=== PATIENT | male | born 1975 | race Caucasian/White ===

== ENCOUNTER → 2021-07-07 09:42 | Outpatient (CLI) | payer OTHER, SELFPAY ==
--- NOTE | ~2021-07-07 | XR_ITS ---
XR thoracic spine 3V DATE: 07/07/2021 10:24 INDICATION: Neck pain, back pain TECHNIQUE: AP, lateral, swimmer views COMPARISON: None FINDINGS: Normal alignment of the thoracic spine. No fracture or bone destruction. The thoracic pedic les are intact. Prominent spurring is noted on the right at T6-7. No paraspinal soft tissue thickening. An status post anterior and interbody spinal fusion at C4-5, with moderate degenerative disc changes above and below the fusion. IMPRESSION: Degenerative change Reviewed, dictated and finalized at location B. IMPRESSION: Degenerative change
--- NOTE | ~2021-07-07 | XR_ITS ---
XR lumbar spine 2-3V DATE: 07/07/2021 10:24 INDICATION: Back pain TECHNIQUE: AP, lateral, coned lateral lumbosacral views COMPARISON: None FINDINGS: There is minimal dextro scoliosis of the lumbar spine. Normal alignment of the lumbar verte brae. No fracture or bone destruction or spondylolisthesis. The lumbar pedicles are intact. There is minimal degenerative spurring at L3-4, L4-5 and L5-S1. The sacroiliac joints are intact. IMPRESSION: Minimal dextroscoliosis Mild degenerative spurring Reviewed, dictated and finalized at location B.
--- NOTE | ~2021-07-07 | XR_ITS ---
XR_CERV2-3V_CR DATE: 07/07/2021 10:23 INDICATION: Cervical disc disorder TECHNIQUE: AP, open-mouth, lateral and swimmer views. Flexion and extension lateral views. COMPARISON: None FINDINGS: There is straightening of the cervical spine. Status post anterior and interbody spinal fusion at C4-5. There is minimal anterolisthesis at C2-3, stable in flexion, extension and neutral. There is anterior and posterior C3-4 spurring but the C3-4 disc space is relatively preserved. There is prominent anterior spurring at C5-6 but the C5-6 disc space is well preserved. C1 and C2 are normally aligned and the odontoid process is intact. No fracture or dislocation or lock ed facet or prevertebral soft tissue swelling. IMPRESSION: Straightening Minimal anterolisthesis at C2-3 Status post anterior and interbody spinal fusion at C4-5, with [id number] degenerative disc jovanna nges above and below this level Reviewed, dictated and finalized at Location A. Reviewed, dictated and finalized at location B. IMPRESSION: Straightening Minimal anterolisthesis at C2-3 Status post anterior and interbody spinal fusion at C4-5, with [id number] degenerative disc changes above and below this level
== END ==
PROVIDERS: PCP Family Medicine; Visit Provider Family Medicine
DX: M50.90 Cervical disc disorder, unspecified, unspecified cervical region (principal); M51.9 Unspecified thoracic, thoracolumbar and lumbosacral intervertebral disc disorder; M41.9 Scoliosis, unspecified; Z98.1 Arthrodesis status; M47.812 Spondylosis without myelopathy or radiculopathy, cervical region
CPT/HCPCS: 72040; 72072; 72100

== ENCOUNTER 2021-09-25 13:30 | Outpatient (RCR) | payer OTHER, SELFPAY ==
--- NOTE | 2021-08-30 11:24 | PTOPEVAL ---
PHYSICAL THERAPY EVALUATION AND PLAN OF CARE Thank you for referring Willy Rush to [facility].? The patient is scheduled to be seen for therapy? 2x/week for 4 weeks. Please review, sign, date and return this plan of care CAIN. I agree with and certify that the following plan of care is medically necessary. Referring Physician Date Evaluation Diagnosis neck pain, degenerative changes Onset chronic Subjective Information Has a degenerative disc Query Text:As Reported By Patient/ disorder - per patient and Family - that causes neurologic changes and impaired gait and weakness. He had surgery in 2016 to remove C4 disc and perform fusion. Since then he has had permenant neurologic changes including impaired gait and weakness and twitching but in the last 6-7 months his amount of activity has significantly decline and is spending a lot less time up and moving. Self Report Pain Assessment Spine, Cervical Reported Pain Level 0 Pain Description Stabbing Greatest Pain Intensity 7 Pain Score Pain Score 0: Self Report Interventions Used Interventions Used By Clinicians Exercise Cervical and Lumbar ROM Cervical ROM Reason Not Measured WFL/Left,WFL/Right Upper Extremity Range of Motion General Upper Extremity Range of Motion Reason Not Measured WFL/Left,WFL/Right Gross Upper Extremity Range of Motion right shoulder internal Comments rotation more limited than left Lower Extremity Muscle Strength Testing Hip Strength Bilateral Hip Flexion Strength 4 Good Hip Extension Strength 4- Good - Hip Abduction Strength 4- Good - Knee Strength Bilateral Knee Flexion Strength 4 Good Knee Extension Strength 4+ Good + Ankle Strength Bilateral Ankle Dorsiflexion Strength 4+ Good + Ankle Plantarflexion Strength 4+ Good + Upper Extremity Muscle Strength Testing Scapular/Shoulder Bilateral Shoulder Flexion Strength 4+ Good + Shoulder Extension Strength 4+ Good + Shoulder Medial Rotation Strength 5 Normal Shoulder Lateral Rotation Strength 5 Normal Elbow/Forearm Bilateral Elbow Flexion Strength 5 Normal Elbow Extension Strength 5 Normal Reflexes Reflexes Location Bilateral Biceps Tendon (C5,C6) Hyperactive, Very Brisk + Brachioradialis Tendon Hyperactive, Very
--- NOTE | 2021-09-07 10:14 | PCPTNOTE ---
Patient called to cancel appointment this date stating his twin daughters are sick.
--- NOTE | 2021-09-25 14:02 | PTOPEVAL ---
PHYSICAL THERAPY DISCHARGE NOTE Thank you for referring Willy Rush to [facility].? Please review, sign, date and return this plan of care CAIN. I agree with and certify that the following plan of care is medically necessary. Referring Physician Date Evaluation Evaluation Information Problem Diagnosis neck pain, degenerative changes Onset chronic Subjective Information States he is able to be up on Query Text:As Reported By Patient/ his feet longer. No falls. Family Pain Assessment Timing of Pain Assessment Timing of Pain Assessment Pre-Treatment Self Report Self Report Pain Level 0 Pain Score Pain Score 0: Self Report Lower Extremity Muscle Strength Testing Hip Strength Bilateral Hip Flexion Strength 5 Normal Hip Extension Strength 4 Good Hip Abduction Strength 4 Good Knee Strength Bilateral Knee Flexion Strength 5 Normal Knee Extension Strength 5 Normal Ankle Strength Bilateral Ankle Dorsiflexion Strength 5 Normal Ankle Plantarflexion Strength 5 Normal Balance Assessment Lowry Balance Assessment Sitting to Standing Independent w/out Hands Unsupported Stance Ability Safely- 2 minutes Sitting Unsupported, Feet on Floor Safely- 2 minutes Standing to Sitting Safely, Minimal Hand Use Transfer Ability Safely, Minimal Hand Use Unsupported Stance- Eyes Closed Safely, 10 seconds Unsupported Stance- Feet Together Independent, 1 minute Reaching Forward while Standing Confidently, [address] Object From Floor Supervision Look Behind Shoulder - Standing Shifts Weight Well Turning 360 Degrees Turns Bilateral, < 4 secs Unsupported Stance, Alternating Feet on 4 Steps w/Supervision Stair Unsupported Tandem Stance Small Step- 30 seconds Unilateral Leg Stance Lifts Leg/Holds > 3 secs LOWRY Balance Evaluation Total Score (/56 49 points) Time Up Go (TUG) Timed Up and Go Test (TUG) (Seconds) 13 Assistive Devices None 5 Time Sit to Stand Time in Seconds 18.79 Gait Assessment 2 Minute Walk Total Distance Walked (feet) 316 2 Minute Walk Gait Speed Score (feet/ 2.63 second) 2 Minute Walk Test Comments 1month ago = 246ft PT Clinical Summary Willy is demonstrating normal balance and gait pattern/speed after 1 month of therapy. He is not at an increased risk for falls at this time. He understands the strategies to decrease tone
== END 2021-09-25 15:20 | disposition home or self-care (01) ==
LOC: ANHPT 13:30
PROVIDERS: PCP Family Medicine
DX: M19.90 Unspecified osteoarthritis, unspecified site (principal)
CPT/HCPCS: 97110; 97163